=== PATIENT | female | born 1960 | race Caucasian/White ===

== ENCOUNTER 2019-11-27 14:39 | Outpatient (CLI) | payer OTHER, SELFPAY ==
--- NOTE | ~2019-11-27 | MM_ITS ---
EXAMINATION: MM screening sahara BI w leta HISTORY: Screening mammogram TECHNIQUE: Craniocaudal and mediolateral oblique 3-D tomosynthesis images were obtained and synthetic 2-D images were generated. Bilateral rotated lateral CC views. CAD analysis was submitted and interp reted. COMPARISON: 10/27/2018, 08/25/2017, 04/03/2016 bilateral digital screening mammogram examinations BREAST PARENCHYMAL COMPOSITION: The breasts are extremely dense, which lowers the sensitivity of mamm ography. FINDINGS: Occasional benign calcifications. There is no evidence of suspicious mass, calcification, o r architectural distortion to suggest malignancy in either breast. There has been no suspicious inter sherron change. IMPRESSION: 1. No mammographic evidence of malignancy. 2. Recommend routine screening mammography in one year. BI-RADS Category 1: Negative Reviewed, dictated and finalized at location A.
== END 2019-11-27 14:40 | disposition home or self-care (01) ==
PROVIDERS: PCP Family Medicine; Visit Provider Obstetrics & Gynecology
DX: Z12.31 Encounter for screening mammogram for malignant neoplasm of breast (principal)
CPT/HCPCS: 77063; 77067

== ENCOUNTER 2020-12-24 09:17 | Outpatient (CLI) | payer OTHER, SELFPAY ==
[2020-12-24 10:46] LABS: Thyroid Stimulating Hormone 0.356 uIU/mL (0.465-4.680)
== END 2020-12-24 09:18 | disposition home or self-care (01) ==
LOC: ANHLAB 09:19
PROVIDERS: PCP Family Medicine; Visit Provider Physician Assistant Medical
DX: E03.9 Hypothyroidism, unspecified (principal)
CPT/HCPCS: 36415; 84443

== ENCOUNTER 2021-02-27 07:36 | Outpatient (CLI) | payer OTHER, SELFPAY ==
--- NOTE | ~2021-02-27 | MR_ITS ---
EXAMINATION: MR shoulder RT wo con DATE: 02/27/2021 08:43 INDICATION: Right shoulder pain TECHNIQUE: Magnetic resonance imaging (MRI) of the right shoulder was performed without intravenous c ontrast. Sequences included axial PD-weighted FS FSE, coronal oblique PD-weighted FS FSE, coronal obl ique T2-weighted FS FSE, sagittal PD-weighted FS FSE, and sagittal T1-weighted SE. COMPARISON: 04/24/2020 FINDINGS: Evaluation mildly limited by some degree of mild motion artifact or blurring on all sequences. Coracoacromial arch: The acromion undersurface is flat in morphology (type I). The coracoacromial ligament is normal. Mild acromioclavicular osteoarthritis. Rotator cuff: Moderate supraspinatus tendinopathy with full versus near full-thickness bursal sided tear extending 9 mm AP along the superior facet footplate and measuring up to 1 cm in medial to lateral width. There is suggestion of a few residual intact articular sided fibers of the tendon. Mild infraspinatus tend inopathy without discrete tear. The teres minor and subscapularis tendons are normal. Normal rotator cuff muscle bulk and signal. Biceps tendon, glenoid labrum and glenohumeral cartilage: Long head of the biceps tendon is normal. Glenoid labrum and cartilage appear normal although sensiti vity is somewhat decreased by the motion. Fluid: Physiologic amount of fluid in the glenohumeral joint and biceps tendon sheath. No loose osteochondra l bodies. Small amount of fluid in the subacromial/subdeltoid bursa which could be due to either mild bursitis or decompression of the glenohumeral joint fluid through the full-thickness tear/perforatio n of the supraspinatus tendon. Bones: Normal marrow signal with no edema, fracture or abnormal marrow replacing process. IMPRESSION: 1. Moderate supraspinatus tendinopathy with small full-thickness versus near full-thickness articular sided tear at the superior facet footplate. Reviewed, dictated and finalized at location A. ETIC TRAINER IMPRESSION: 1. Moderate supraspinatus tendinopathy with small full-thickness versus near fu ll-thickness articular sided tear at the superior facet footplate.
== END 2021-02-27 07:37 | disposition home or self-care (01) ==
LOC: ANHIMG 07:42
PROVIDERS: PCP Family Medicine; Visit Provider Orthopaedic Surgery
DX: M25.511 Pain in right shoulder (principal); M75.81 Other shoulder lesions, right shoulder
CPT/HCPCS: 73221

== ENCOUNTER 2021-04-01 14:17 | Outpatient (CLI) | payer OTHER, SELFPAY ==
--- NOTE | ~2021-04-01 | MM_ITS ---
EXAMINATION: MM screening sahara BI w leta HISTORY: Screening mammogram TECHNIQUE: Craniocaudal and mediolateral oblique 3-D tomosynthesis images were obtained and synthetic 2-D images were generated. CAD analysis was submitted and interpreted. COMPARISON: 11/27/2019, 10/27/2018, 08/25/2017 bilateral screening mammogram examinations BREAST PARENCHYMAL COMPOSITION: The breasts are extremely dense, which lowers the sensitivity of mamm ography. FINDINGS: There is no evidence of suspicious mass, calcification, or architectural distortion to sugg est malignancy in either breast. There has been no suspicious interval change. IMPRESSION: 1. No mammographic evidence of malignancy. 2. Recommend routine screening mammography in one year. BI-RADS Category 1: Negative Reviewed, dictated and finalized at location A. CHARGE PROCESS ATTENDANT
== END 2021-04-01 14:18 | disposition home or self-care (01) ==
LOC: ANHIMG 14:19
PROVIDERS: PCP Family Medicine; Visit Provider Obstetrics & Gynecology
DX: Z12.31 Encounter for screening mammogram for malignant neoplasm of breast (principal)
CPT/HCPCS: 77063; 77067

== ENCOUNTER 2021-04-11 02:26 | Day surgery (SDC) | payer OTHER, SELFPAY ==
[2021-04-03 15:21] VITALS: BMI 27.6
--- NOTE | 2021-04-03 15:22 | SUR.PREOP ---
Report to the Outpatient Waiting Room, entrance under the green pavilion located off [facility], at time _1100_ on date 04/11/21 . OR Time: _1300 . - You and your visitor will be asked a series of questions to screen for COVID 19 for your protection. - A mask is required within the hospital. Preoperative COVID Testing Requirements: No COVID Test needed if: (proof is required; if not received patient will have Rapid Test prior to entry) - Patient has received COVID Vaccine at least 14 days prior to procedure date or - Patient has positive COVID test result within last 90 days of surgery date. COVID Test needed if above criteria is not met If not COVID vaccinated a COVID test must be conducted within 72 hours of surgery and patient is asked to isolate self from time of testing until procedure. You will go to the [facility] for your COVID testing. The [employer] [facility] is located at the corner of [address] from [facility]. You will only be called if COVID results are positive and your surgeon may reschedule your elective surgery date. Patients may have clear liquids (water, carbonated beverages, clear teas, apple juice) until 3 hours prior to surgery with a maximum of 20 ounces. - No food from midnight until time of surgery - Infants may have breast milk until 4 hours before surgery, formula 6 hours prior to surgery. - Children will be allowed to drink immediately following surgery. If applicable, please bring a bottle or sippy cup to assist with drinking. Juice, water, soda, and popsicles are readily available. For infants on formula, please bring formula the day of surgery. Pacifiers are allowed. Take the following medications with a SIP of water the morning of surgery: _levothyroxine Medications to discontinue per physician ____aleve x 7days,multivitamin x 3 days Date to take last dose Please no make-up, nail belarusian, hairspray, perfume, deodorant, or body powder the day of surgery. No jewelry (including any body piercings) or valuables the day of surgery, leave them at home. Please take a shower or bath the night before, or the morning of, surgery with an antibacterial soap. Wear comfortable, loose fitting clothing. Children are encouraged to wear pajamas. - Jewelry must be removed prior to entering the operating room. Rings and piercings that are not removed may be cut off. - The hospital will not accept responsibility for valuables. - Please leave all valuables, including medications, at home the day of surgery. If you are going home after surgery, a licensed electric pile driver operator must drive you home. - NO public transportation without another adult. - We recommend that an adult stay with you for 24 hours following discharge. - We also recommend that you do not drive, make important decision, drink alcoholic beverages, or take any drugs that were not prescribed by your health care provider for at least 24 hours after your discharge time. For Pediatric surgeries, we recommend two adults accompany the child home (only one inside the building at this time). One visitor will be allowed to accompany the patient into the hospital. Patients visitor will be instructed to remain with patient at all times or leave the building. We will allow the visitor to come back to the postoperative area when patient is ready. Follow any additional instructions given to you from your surgeon. Telephone instructions given to kiah galicia and asked if any additional questions and then verbalized understanding. Patient advised to call surgeon office or pre surgery nurse liaison [phone] if any additional questions.
--- NOTE | 2021-04-10 13:20 | P.PNAN_ITS ---
Anes - Initial Pre Proc Eval Procedure: Operation Date: 04/11/21 10:30 Proposed Procedures p Arthroscopic Rotator Cuff Repair Right Shoulder, Proceed As Indicated - Jd Jonas MD Date/Time: 04/10/21 13:20 Surgeon: Jd Jonas MD Pre Op Diagnosis: rotator cuff tendonitis right shoulder Patient Data Age: 60 Gender: F Height: 1.55 m Weight: 66.36 kg Allergies Allergy/AdvReac Type Severity Reaction Status Date / Time No Known Allergies Allergy Mild Verified 04/11/21 08:53 Home Medications Medication Instructions Recorded Confirmed Type levothyroxine 88 mcg tablet 88 mcg PO DAILY #90 tablet 01/27/21 04/11/21 Rx fexofenadine [Diana] 60 mg PO Q12H 04/03/21 04/11/21 History multivitamin 1 cap PO DAILY 04/03/21 04/11/21 History naproxen sodium [Aleve] 220 mg PO DAILY 04/03/21 04/11/21 History Patient hx anesthesia problems: post op nausea/vomiting Family hx anesthesia problems: none Results Review: All pre-operative results and documents have been reviewed as part of the pre-operative evaluation. [facility] Past Medical History Medical History (Updated 04/10/21 @ 13:21 by Hao Lerma DO) Hypothyroid PONV (postoperative nausea and vomiting) Surgical History Surgical History (Updated 04/10/21 @ 13:21 by Hao Lerma DO) History of Family History Family History Father Family history of cardiovascular disease Family history of malignant neoplasm Mother Family history of arthritis Father Family history of cardiovascular disease Social History Social History Smoking status: Never smoker Alcohol intake: never Living arrangements: alone Spiritual care concerns: No Anes - Eval Final PreProcedure Day of Procedure 04/10/21 13:20 Patient weight: overweight Heart: regular rate and rhythm Lungs: clear to auscultation and normal air movement Airway: Mallampati scale class II Neurological: alert and oriented Last oral intake: >/= 8 hours ASA classification: II Emergent: no Anesthetic plan: proceed Anesthesia type and monitoring: general ETT and standard monitoring Results Review: All pre-operative results and documents have been reviewed as part of the pre-operative evaluation. Informed Consent: The patient's anesthetic plan and its attendant risks and benefits were discussed with the patient/family/POA. Questions were solicited and answers provided to the satisfaction of the patient/family/POA.
--- NOTE | 2021-04-10 13:21 | WPDANESPNB ---
Anes - Peripheral Nerve Block Date/Time: 04/10/21 13:21 I have discussed with the patient/family/POA the placement of a peripheral nerve block for post-operative pain management, including associated risks, benefits, complications, and side effects. Alternative methods of post-operative analgesia were detailed. Questions were solicited and answers provided to the satisfaction of the patient/family/POA. Time-Out: A pre-procedural Time-Out was completed immediately before starting the procedure and confirmed: Patient Identification, Site, Procedure, Patient Position and the Availability of Requisite Equipment. Clinical Indications: Acute post-operative pain management requested by the operative surgeon. Nerve Block Insertion Note Anes-nerve block: interscalene right Patient position: supine Skin prep: chlorhexidine Needle: 22 gauge, stimulating, insulated echogenic needle. Needle length: 50 mm Technique: ultrasound Injectate: bupivacaine 0.5% with epi 5 mcg/ml (30cc- no epi) Observations: tolerated well Complications: none Procedure start time:: 1030 Procedure end time:: 103
[2021-04-11] VITALS (10 sets, daily range): BP systolic 89–117; BP diastolic 47–73; PULSE 62–98; RESP 10–17; TEMP 36.1–36.8; O2SAT 95–100
[2021-04-11] MEDS: ACETAMINOPHEN 500 MG TABLET 1000 MG PO (09:03)
[2021-04-11] MEDS: KETOROLAC 15 MG/ML VIAL (*BKC) IV PUSH (09:22)
[2021-04-11] MEDS: LACTATED RINGERS 1,000 ML 30 ML IV CONT ×2 (09:22→12:24)
--- NOTE | 2021-04-11 12:34 | P.OP_ITS ---
Procedure Note - Detailed Date of Procedure 04/11/21 Pre-op Diagnosis Rotator cuff tear right shoulder. 2. Subacromial impingement right shoulder. Post-op Diagnosis Other (1. Right full thickness rotator cuff tear 2. Subacromial impingement) Procedure Performed 1. Arthroscopic rotator cuff repair 2. Arthroscopic subacromial decompression Surgeon Jd Jonas MD Application Development Liaison Yanira Marcum PA-C Anesthesia General and Regional ( interscalene block) Findings Small to medium full thickness supraspinatus tear without retraction. L shaped split. Subacromial spur. Description of Procedure Physician assistant technician, Yanira Marcum PA-C, required for surgery; including patient positioning, draping, arthroscopic camera operation, maintaining instrument position, suture retrieval, wound closure, and dressing and sling placement. Preoperative antibiotics were given. An interscalene block was administered in the preoperative area. The patient was bought brought to the operating room. A general anesthetic was administered. The patient was carefully positioned in the beach chair position. The head and neck were carefully positioned. The non operative extremity was also carefully positioned. The shoulder was prepped and draped in the usual sterile fashion. Examination was performed. Standard posterior and anterior arthroscopic portals were established. Inflow achieved with the arthroscopic pump using saline and epinephrine. The glenohumeral joint was carefully inspected. Minimal fraying of the subscapularis noted Small to medium sized supraspinatus tear noted. Attention was turned to the subacromial space. A complete bursectomy was performed. The rotator cuff and footprint were lightly debrided. A modest acromioplasty was performed. The tear configuration was carefully assessed. At this point, 2 tunnels were created at the rotator cuff. The ArthroTunneler technique was utilized. Three sutures were passed through each tunnel. All sutures were then passed through the cuff tissue. The sutures were tied arthroscopically. The arthroscopic instruments were removed. The wounds were closed with 3-0 Monocryl subcuticular suture and steri strips. There were no complications. A sling was applied and the patient brought to the recovery room. Estimated Blood Loss 10 Pathology None sent Complications No immediate complications Condition Stable Disposition PACU
== END 2021-04-11 15:20 | disposition home or self-care (01) ==
PROVIDERS: PCP Family Medicine; Visit Provider Orthopaedic Surgery
PROC: (CPT 29805; principal; 2021-04-11 10:30)
DX: M75.121 Complete rotator cuff tear or rupture of right shoulder, not specified as traumatic (principal); M75.41 Impingement syndrome of right shoulder; G89.18 Other acute postprocedural pain; E03.9 Hypothyroidism, unspecified
CPT/HCPCS: 29827; 29826; 64415; A4565; A9270; J0330; J1100; J1200; J1885; J2250; J2405; J2704; J3010; J7120

== ENCOUNTER 2021-06-26 09:00 | Outpatient (RCR) | payer OTHER, SELFPAY ==
[2021-04-25 14:00] VITALS: BP_SYST 75
--- NOTE | 2021-04-25 15:25 | PTOPEVAL ---
PHYSICAL THERAPY EVALUATION AND PLAN OF CARE 04-25-21 Thank you for referring Jazz Camacho to [facility], s/p R shoulder surgery. Jazz is scheduled to be seen for therapy? 2 x/week for 4 weeks. Please review, sign, date and return this plan of care NESTOR. I agree with and certify that the following plan of care is medically necessary. 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 Hand Dominance Right Additional Prior Level of Function daughter lives near by and Comments assisting PRN; friend or family provide transportation prior to surgery, active, jogged, arm and leg resisted exercises; prior to surgery, pt reports she had full ROM of the shoulder; and pain at the end of the day with activity Pain Assessment Right Shoulder(s) Reported Pain Level 0 Pain Description Aching,Dull,Soreness,Tender on Palpation,Tightness Radicular Pain Location R scapular pain Pain Frequency Acute,Intermittent Lowest Pain Intensity 0 Greatest Pain Intensity 3 Pain Aggravating Factors Exercise/Activity Pain Behaviors Anxious,Guarding Pain Score Pain Score 0: Self Report Additional Pain Score Comments sleeping through the night, in her bed, using sling; also having some R mid- thoracic pain; Interventions Used Interventions Used By Clinicians Education,Exercise Pain Relief Interventions Used By Inactivity/Rest,Medication Patient Other Alleviating Interventions sling; taking tylenol arthritis med;ibuprofen; no prescription meds Cervical and Lumbar ROM Cervical ROM Cervical ROM Comments sitting cervical rotation R and L, and side bend R/L reports neck tight and sore ; General Upper Extremity Range of Motion Reason Not Measured WNL/Left Scapular/ Shoulder Range of Motion Right Shoulder Flexion - Passive 120 Shoulder Abduction - Passive 75 Shoulder Lateral Rotation - Passiv
--- NOTE | 2021-05-23 11:02 | PTOPEVAL ---
PHYSICAL THERAPY RE-EVALUATION AND UPDATED PLAN OF CARE 05-23-21 Refer to the clinical summary below, for her status today, compared to the initial evaluation. Continue PT treatment 2x/wk for 3 weeks, then 1x/wk for 2 weeks. Thank you for referring Jazz Camacho to [facility].? Please review, sign, date and return this updated plan of care NESTOR. I agree with and certify that the following plan of care is medically necessary. Referring Physician Date Attending Provider: Jd Jonas MD Subjective Information Jazz reports: saw the dr Query Text:As Reported By Patient/ yesterday-- he said she was Family doing well, can go without the sling, return to work next week, monitor pain and fatigue --not overdo it, no restricts with shoulder; Since yesterday--she has put sling to the side and not used it; feels like her shoulder is much better and getting stronger; is doing all her exercises at home; wants to continue therapy. She has been doing some walking for fitness and trying to be more active; Pain Assessment Pain Scale Used Numeric (1 - 10) Right Shoulder(s) Reported Pain Level 1 Pain Description Dull Pain Frequency Chronic,Continuous Lowest Pain Intensity 1 Greatest Pain Intensity 3 Pain Aggravating Factors Exercise/Activity Other Pain Aggravating Factors reaching out to the side; lie on R shoulder; Pain Behaviors Anxious,Guarding Pain Score Pain Score 1: Self Report Additional Pain Score Comments reinforced use of ice--stated has not been needing it lately ; is sleeping OK without the sling, but cannot lie on her R shoulder Interventions Used Interventions Used By Clinicians Education,Exercise Pain Relief Interventions Used By Inactivity/Rest,Medication Patient Other Alleviating Interventions tylenol; warm bath; Scapular/ Shoulder Range of Motion Right Shoulder Flexion - Active 105 Shoulder Flexion - Passive 125 Shoulder Abduction - Active 85 Shoulder Medial Rotation - Active palm to sacrum Query Text:Reach Behind the Back Shoulder Lateral Rotation - Passive 45 Shoulder Lateral Rotation - Active palm to behind ear Query Text:Reach Behind the Head Scapular/Shoulder Range of Motion active ROM in standing; PRO
--- NOTE | 2021-06-25 09:10 | PCPTNOTE ---
pt called and rescheduled today's reevaluation for tomorrow due to work;
[2021-06-26 09:00] VITALS: BP_SYST 145
--- NOTE | 2021-06-26 09:41 | PTOPEVAL ---
PHYSICAL THERAPY DISCHARGE REPORT 06-26-21 Refer to the clinical summary below, for her status today, compared to the last reevaluation. Jazz has good ROM and strength of her R shoulder and reports that she has returned to all of her usual activities. Discharge PT services and she is to continue with her home exercise program. Thank you for referring Jazz Camacho to [facility].? Please review, sign, date and return this Discharge report NESTOR. I agree with and certify that the following plan of care is medically necessary. Referring Physician Date Attending Provider: Jd Jonas MD Subjective Information Jazz reports: shoulder is Query Text:As Reported By Patient/ doing well; at home is doing Family her usual activities, returned to walking and jogging for 45 min total; is using her R arm for shopping and home things without any problems; feels is ready for d/c from therapy; Pain Assessment Pain Scale Pain Scale Used Numeric (1 - 10) Self Report Pain Assessment Right Shoulder(s) Reported Pain Level 0 Pain Frequency Chronic,Intermittent Other Pain Description stiff and tight when first wake up in morning; Lowest Pain Intensity 0 Greatest Pain Intensity 1 Pain Aggravating Factors Exercise/Activity Pain Score Pain Score 0: Self Report Additional Pain Score Comments also have pain in thoracic/ scapular area, correcting posture helps ease the pain; no issues with sleeping, can lie on R side ~ 5 minutes; Interventions Used Interventions Used By Clinicians Education,Exercise Pain Relief Interventions Used By Heat Patient Other Alleviating Interventions taking few tylenol a day; Shoulder Range of Motion Right Shoulder Flexion - Active 130 Shoulder Flexion - Passive 145 Shoulder Abduction - Active 140 Shoulder Abduction - Passive 145 Shoulder Medial Rotation - Active palm to waist Query Text:Reach Behind the Back Shoulder Lateral Rotation - Active palm to back of head Query Text:Reach Behind the Head Gross Upper Extremity Strength Comments functional strength testing: R shoulder standing x 10 reps through active ROM: flexion and abduction with 2# hand wt performed and added to HEP: green theraband for B rows,
== END 2021-06-26 16:19 | disposition home or self-care (01) ==
LOC: ANHPT 09:00
PROVIDERS: PCP Family Medicine; Visit Provider Orthopaedic Surgery
DX: Z48.89 Encounter for other specified surgical aftercare (principal)
CPT/HCPCS: 97035; 97110; 97112; 97140; 97161; 97530

== ENCOUNTER 2022-03-13 12:41 | Outpatient (CLI) | payer OTHER, SELFPAY | END 2022-03-13 12:42 | disposition home or self-care (01) | LOC: ANHLAB 12:42 | PROVIDERS: PCP Family Medicine; Visit Provider Family Medicine | DX: R30.0 Dysuria (principal) | CPT/HCPCS: 87086 ==

== ENCOUNTER 2022-04-06 15:36 | Outpatient (CLI) | payer OTHER, SELFPAY ==
--- NOTE | ~2022-04-06 | MM_ITS ---
EXAMINATION: MM screening sahara BI w leta HISTORY: Screening mammogram TECHNIQUE: Craniocaudal and mediolateral oblique 3-D tomosynthesis images were obtained and synthetic 2-D images were generated. CAD analysis was submitted and interpreted. COMPARISON: April 01, 2021, November 27, 2019, October 27, 2018 bilateral screening mammogram exa minations BREAST PARENCHYMAL COMPOSITION: The breasts are extremely dense, which lowers the sensitivity of mamm ography. FINDINGS: There is no evidence of suspicious mass, calcification, or architectural distortion to sugg est malignancy in either breast. There has been no suspicious interval change. IMPRESSION: 1. No mammographic evidence of malignancy. 2. Recommend routine screening mammography in one year. BI-RADS Category 1: Negative Reviewed, dictated and finalized at location A. SHARPENER
== END 2022-04-06 15:37 | disposition home or self-care (01) ==
LOC: ANHIMG 15:38
PROVIDERS: PCP Family Medicine; Visit Provider Obstetrics & Gynecology
DX: Z12.31 Encounter for screening mammogram for malignant neoplasm of breast (principal)
CPT/HCPCS: 77063; 77067

== ENCOUNTER 2023-01-11 09:10 | Outpatient (CLI) | payer OTHER, SELFPAY ==
[2023-01-11 09:57] LABS: Alanine Aminotransferase 13 U/L (6-35); Albumin Level 4.6 g/dL (3.5-5.1); Alkaline Phosphatase 100 U/L (38-126); Anion Gap 10 mmol/L (8-16); Aspartate Amino Transferase 23 U/L (14-36); Bilirubin,Total 0.6 mg/dL (0.2-1.3); Blood Urea Nitrogen 15 mg/dL (7-17); Calcium 9.9 mg/dL (8.4-10.2); Carbon Dioxide 28 mmol/L (22-30); Chloride 101 mmol/L (98-107); Cholesterol 249 mg/dL (0-200); Estimated Glomerular Filt Rate > 60; Glucose 108 mg/dL (65-110); HDL Direct 52 mg/dL; Potassium 4.2 mmol/L (3.4-5.0); Sodium 139 mmol/L (137-145); Triglycerides 154 mg/dL (<150)
[2023-01-11 10:08] LABS: LDL Cholesterol Direct 123 mg/dL
[2023-01-11 10:57] LABS: Hepatitis C Virus Antibody Negative (Negative)
== END 2023-01-11 09:11 | disposition home or self-care (01) ==
PROVIDERS: PCP Family Medicine; Visit Provider Family Medicine
DX: Z00.00 Encounter for general adult medical examination without abnormal findings (principal); E03.9 Hypothyroidism, unspecified; Z11.59 Encounter for screening for other viral diseases
CPT/HCPCS: 36415; 80053; 80061; 84443; 86803

== ENCOUNTER 2023-10-06 15:31 | Outpatient (CLI) | payer OTHER, SELFPAY ==
--- NOTE | ~2023-10-06 | MM_ITS ---
EXAMINATION: MM screening sahara BI w leta HISTORY: Screening TECHNIQUE: Craniocaudal and mediolateral oblique 3-D tomosynthesis images were obtained and synthetic 2-D images were generated. CAD analysis was submitted and interpreted. COMPARISON: Comparison to multiple prior studies sequentially, with oldest reviewed study dated 04/03. BREAST PARENCHYMAL COMPOSITION: Dense: The breasts are extremely dense, which lowers the sensitivity of mammography. FINDINGS: There is no evidence of suspicious mass, calcification, or architectural distortion to sugg est malignancy in either breast. There has been no suspicious interval change. IMPRESSION: 1. No mammographic evidence of malignancy. 2. Recommend routine screening mammography in one year. BI-RADS Category 1: Negative Reviewed, dictated and finalized at location B.
== END 2023-10-06 15:32 | disposition home or self-care (01) ==
LOC: ANHIMG 15:32
PROVIDERS: PCP Family Medicine; Visit Provider Obstetrics & Gynecology
DX: Z12.31 Encounter for screening mammogram for malignant neoplasm of breast (principal)
CPT/HCPCS: 77063; 77067

== ENCOUNTER 2024-04-04 08:57 | Outpatient (CLI) | payer OTHER, SELFPAY ==
[2024-04-04 09:50] LABS: Alanine Aminotransferase 15 U/L (6-35); Albumin Level 4.2 g/dL (3.5-5.1); Alkaline Phosphatase 76 U/L (38-126); Anion Gap 13 mmol/L (4-12); Aspartate Amino Transferase 21 U/L (14-36); Bilirubin,Total 0.5 mg/dL (0.2-1.3); Blood Urea Nitrogen 24 mg/dL (7-17); Calcium 9.4 mg/dL (8.4-10.2); Carbon Dioxide 24 mmol/L (22-30); Chloride 103 mmol/L (98-107); Cholesterol 229 mg/dL (0-200); Estimated Glomerular Filt Rate > 60; Glucose 76 mg/dL (65-110); HDL Direct 51 mg/dL; Sodium 140 mmol/L (137-145); Triglycerides 125 mg/dL (<150)
[2024-04-04 10:01] LABS: LDL Cholesterol Direct 105 mg/dL
== END 2024-04-04 08:58 | disposition home or self-care (01) ==
PROVIDERS: PCP Family Medicine; Visit Provider Student in an Organized Health Care Education/Training Program
DX: E03.9 Hypothyroidism, unspecified (principal); E78.5 Hyperlipidemia, unspecified
CPT/HCPCS: 36415; 80053; 80061; 84443

== ENCOUNTER 2024-11-14 12:05 | Outpatient (CLI) | payer OTHER, SELFPAY ==
--- NOTE | ~2024-11-14 | MM_ITS ---
EXAMINATION: MM screening sahara BI w leta HISTORY: Screening TECHNIQUE: Craniocaudal and mediolateral oblique 3-D tomosynthesis images were obtained and synthetic 2-D images were generated. CAD analysis was submitted and interpreted. COMPARISON: Comparison to multiple prior studies sequentially, with oldest reviewed study dated , 08/25/2017 BREAST PARENCHYMAL COMPOSITION: The breasts are extremely dense, which lowers the sensitivity of mammography. FINDINGS: There is no evidence of suspicious mass, calcification, or architectural distortion to suggest malignancy in either breast. IMPRESSION: 1. No mammographic evidence of malignancy. 2. Recommend routine screening mammography in one year. BI-RADS Category 1: Negative Reviewed, dictated and finalized at location B.
== END 2024-11-14 12:06 | disposition home or self-care (01) ==
LOC: CHSIMG 12:06
PROVIDERS: PCP Family Medicine; Visit Provider Obstetrics & Gynecology
DX: Z12.31 Encounter for screening mammogram for malignant neoplasm of breast (principal)
CPT/HCPCS: 77063; 77067